=== PATIENT | female | born 1945 | race Caucasian/White ===

== ENCOUNTER → 2017-04-10 | Outpatient (CLI) | payer MEDICARE, OTHER ==
[2015-11-09 15:00] VITALS: BP 98/58
[~2017-04-10] MED LIST: AMLO5TAB2 PO; ATOR40TA59 PO; CELE200C PO; CELE400C PO; ESOM40CA PO; FERR-36 PO; FERR325T58 PO; FURO40TA4 PO; INSU100I18 SQ; LEVO100T PO; LIRA0.6P SQ; LORA10TA3 PO; LOSA100T6 PO; METO-269 PO; MULT-245 PO; POTA20TA82 PO; PSYL0.527 PO; SITA1TAB7 PO
--- NOTE | 2017-04-13 10:22 | KCIC ---
DATE: 04/10/2017 EXAM: MAMMO FARZANEH SCREENING BILATERAL HISTORY: Screening COMPARISON: One year earlier This study was interpreted with the benefit of Computerized Aided Detection (CAD). FINDINGS: Breast Density: FATTY The Breast Parenchyma is primarily fatty replaced. Breast parenchyma level density A.. There has been little change in the appearance of the breasts compared to the previous exam IMPRESSION: Benign finding BI-RADS CATEGORY: 2 BENIGN FINDING(S) RECOMMENDED FOLLOW-UP: 12M 12 MONTH FOLLOW-UP PQRS compliance statement: Patient information was entered into a reminder system with a target due date 04/10/2018 for the next mammogram. Mammography is a sensitive method for finding small breast cancers, but it does not detect them all and is not a substitute for careful clinical examination. A negative mammogram does not negate a clinically suspicious finding and should not result in delay in biopsying a clinically suspicious abnormality. "Our facility is accredited by the [employer] Mammography Program."
== END | disposition home or self-care (01) ==
LOC: KCIC MAMMO 14:48
PROVIDERS: ATTEND Internal Medicine
DX: Z12.31 Encounter for screening mammogram for malignant neoplasm of breast (principal)
CPT/HCPCS: 77063; G0202; 77067